=== PATIENT | male | born 1970 | race Caucasian/White ===

== ENCOUNTER 2019-05-22 13:25 | Emergency (ER) | payer MEDICAID ==
[~2019-05-22] VITALS: Ht 182.9 cm; Wt 68.2 kg
[2019-05-22 13:47] VITALS: Ht 182.9 cm; Wt 68.2 kg
[2019-05-22] MEDS ORDERED: LEVOTHYROXINE50 MCG PO (13:48)
[2019-05-22] MEDS ORDERED: LIPITOR80 MG PO (13:48)
[2019-05-22] MEDS ORDERED: PROTONIX40 MG PO (13:48)
[2019-05-22] MEDS ORDERED: PLAVIX75 MG PO (13:48)
[2019-05-22] MEDS ORDERED: ZETIA10 MG PO (13:49)
[2019-05-22] MEDS ORDERED: VIAGRA50 MG PO (13:49)
[2019-05-22] MEDS ORDERED: COREG6.25 MG PO (13:49)
[2019-05-22 14:39] LABS: EOSINOPHILS 2.6 % (0-7); HEMATOCRIT 45.9 % (42.0-54.0); HEMOGLOBIN 15.7 g/dL (13.5-17.5); IMMATURE GRANULOCYTES 0.2 % (0-5); LYMPHOCYTES 22.1 % (15-50); MCHC 34.2 g/dL (31.0-37.0); MCV 93.7 fL (80.0-100.0); MEAN PLATELET VOLUME 10.2 fL (7.4-10.4); MONOCYTES 6.3 % (2-11); NEUTROPHILS 67.8 % (40-80); PLATELET COUNT 179 10x3/uL (130-400); RDW 12.3 % (11.5-14.5); WBC 5.8 10x3/uL (4.8-10.8)
[2019-05-22 14:40] LABS: CALC OSMOLALITY 284 mosm/kg (275-300); CALCIUM 9.4 mg/dL (8.5-10.1); CARBON DIOXIDE 30.4 mmol/L (21.0-32.0); CHLORIDE - SERUM 104 mmol/L (98-107); CREATININE - SERUM 0.9 mg/dL (0.6-1.3); GLUCOSE 98 mg/dL (74-106); POTASSIUM - SERUM 3.9 mmol/L (3.5-5.1); SODIUM 143 mmol/L (136-145); UREA NITROGEN 12 mg/dL (7-18); eGFR NON AFRICAN AMERICAN > 90 mL/min (90-120)
[2019-05-22 14:46] LABS: ALBUMIN 4.4 g/dL (3.4-5.0); ALKALINE PHOSPHATASE 75 U/L (46-116); ALT (SGPT) 31 U/L (10-68); BILIRUBIN - TOTAL 0.49 mg/dL (0.2-1.3); PROTEIN - SERUM 8.1 g/dL (6.4-8.2)
[2019-05-22 14:58] LABS: INR 0.95 (0.85-1.17); PROTIME 12.2 SECONDS (11.6-15.0)
[2019-05-22 18:00] LABS: AMYLASE - SERUM 75 U/L (25-115); LIPASE 144 U/L (73-393)
[2019-05-22] MEDS ORDERED: LEVSIN/ANASP0.125 MG PO (19:18)
[2019-05-22] MEDS ORDERED: IBUPROFEN800 MG PO (19:18)
[2019-05-22] MEDS ORDERED: CYCLOBENZAPRINE10 MG PO (19:18)
[2019-05-22] MEDS ORDERED: ACETAMINOPHEN500 M1 PO (19:18)
[2019-05-22] MEDS ORDERED: RANITIDINE HCL150 M1 PO (19:19)
[2019-05-22 21:25] VITALS: BP 118/82
== END 2019-05-22 21:08 | disposition home or self-care (01) ==
LOC: D.ER 13:25
PROVIDERS: Family Medicine
DX: R10.9 Unspecified abdominal pain (principal); I25.2 Old myocardial infarction

== ENCOUNTER 2020-01-27 16:44 | Inpatient (IN) | payer MEDICAID ==
[~2020-01-27] VITALS: Ht 182.9 cm; Wt 66.5 kg
--- NOTE | ~2020-01-27 | HEMODYNAMI ---
PATIENT:ZULEYMA DAUGHERTY MEDICAL RECORD: [id number] : 66 LOCATION:[facility] D.2140 ADMISSION DATE: 01/27/20 Generatedon:01/28/202014:26 Patient name: ZULEYMA DAUGHERTY Patient #: [id number] SSN: D OB: 1970 Date of study: 01/28/2020 Page: Of Hemodynamic Procedure Report Patient Data Patient Demographics Procedure consent was obtained First Name: ZULEYMA Gender: Male Last Name: WILLOW : 1970 Middle Initial: L Age: 50 year(s) Patient #: [id number] Race: Additional ID: [id number] Contact details [address]: [address] [place] [address] State: [place] City: [place] Zip code: [address] Past Medical History Allergies Allergen Reaction Date Comments Reported Other allergy 01/28/2020 NKDA Admission Admission Data Admission Date: 01/27/2020 Admission Time: 19:47 Arrival Date: 01/28/2020 Arrival Time: 0:00 Admit Source: Other Room #: D.2140 Height (in.): 72 BSA: 1.86 (m2) Height (cm.): 182.88 BMI: 19.8 (kg/m2) Weight (lbs.): 146 Weight (kg.): 66.22 Lab Results Lab Result Date: 01/28/2020 Lab Result Time: 0:00 Biochemistry Name Units Result Min Max BUN mg/dl 14.1 --(--*-)-- 7 18 CK-MB ng/ml 0.5 --(*---)-- 0 3.6 Creatinine mg/dl 1.1 --(--*-)-- 0.6 1.3 eGFR ml/min 75 *-(----)-- 90 120 NONAFRICAN Troponin l ng/ml 0.017 --(-*--)-- 0 0.06 CBC Name Units Result Min Max Hematocrit % 46 --(-*--)-- 42 54 Hemoglobin g/dl 15.2 --(-*--)-- 13.5 17.5 Procedure Procedure Types Cath Procedure Diagnostic Procedure [facility] w/Coronaries Sedation Charges Moderate Sedation up to 15 minutes Procedure Description Procedure Date Procedure Date: 01/28/2020 Procedure Start Time: 14:08 Procedure End Time: 14:23 Procedure Staff Name Function Pedro Gonzalez MD Performing Physician Mirian Baez RT Monitor Carri Abel RT Scrub James Kat RN Nurse Indication Chest pain Procedure Data Cath Procedure Fluoroscopy Diagnostic fluoroscopy Total fluoroscopy Time: 1.3 time: 1.3 min min Diagnostic fluoroscopy Total fluoroscopy dose: 258 dose: 258 mGy mGy Contrast Material Contrast Material Type Amount (ml) Isovue 300 55 Entry Location Entry Primary Successful Side Size Upsize Upsize Entry Closure Succes sful Closure Location (Fr) 1 (Fr) 2 (Fr) Remarks Device Remarks Femoral Right 5 Fr Exoseal artery Estimated blood loss: 5 ml Diagnostic catheters Device Type Used For End Catheter Placement MULTIPACK JL 4.0 5Fr Left Coronary catheter Angiography MULTIPACK 3DRC 5Fr Right Coronary catheter Angiography MULTIPACK Pigtail 5 Fr LV Angiography catheter Procedure Complications No complications Procedure Medications Medication Administration Route Dosage 0.9% NaCl I.V. 100 ml/hr Oxygen etCO2 Nasal cannula 2 l/min Heparin Flush Bag added to field 2 bags (1000units/500ml NS) Lidocaine 2% added to field 20 Benadryl I.V. 50 mg Versed I.V. 2 mg Fentanyl I.V. 100 mcg Versed I.V. 1 mg Hemodynamics Rest BSA: 1.86 (m2) HGB: 15.2 (g/dl) O2 Consumption: Estimated: 217.77 (ml/min) O2 Co nsumption indexed: Estimated:117.08 (ml/min/m) Heart Rate: 64 (bpm) Pressure Samples Time Site Value (mmHg) Purpose Heart Use Rate(bpm) 14:17 LV 155/-6,8 Snapshot 84 Gradients Valve Time Site Site Mean SEP/DFP Peak To Heart Use 1 2 (mmHg) (sec/min) Peak Rate (mmHg) (bpm) Aortic 14:17 LV AO 36 Snapshots Pre Cath Intra NCS Post Cath Vital Signs Time Heart Resp SPO2 etCO2 NIBP (mmHg) Rhythm Pain Sedation Rate (ipm) (%) (mmHg) Status Level (bpm) 13:56:23 63 14 100 0 150/88(133) NSR 0 (11) 10(A) , No pain 14:00:34 68 13 98 0 147/95(135) NSR 0 (11) 10(A) , No pain 14:04:46 66 13 100 39.7 152/91(130) NSR 0 (11) 10(A) , No pain 14:09:00 71 15 100 36.7 144/94(114) NSR 0 (11) 10(A) , No pain 14:13:10 93 21 99 19.5 150/102(132) NSR 0 (11) 10(A) , No pain 14:17:22 78 16 97 0 153/103(125) NSR 0 (11) 9(A) , No pain 14:21:34 75 13 97 0 145/95(136) NSR 0 (11) 9(A) , No pain Medications Time Medication Route Dose Verified Delivered Reason Notes Eff ectiveness by by 14:03:56 0.9% NaCl I.V. 100 James James Per ml/hr [place] Kat physician RN RN 14:04:06 Oxygen etCO2 2 Jamse James for low 02 Nasal l/min Lorigan Lorigan sats cannula RN RN 14:04:18 Heparin Flush added 2 James James used for Bag to bags Lorigan Lorigan procedure (1000units/500ml field RN RN NS) 14:04:28 Lidocaine 2% added 20ml James James for local to vial Lorigan Lorigan anesthetic field RN RN 14:04:42 Benadryl I.V. 50 mg James James Per [place] physician RN RN 14:09:39 Versed I.V. 2 mg James James for Lorigan Lorigan sedation RN RN 14:09:48 Fentanyl I.V. 100 James James for mcg Lorigan Lorigan sedation RN RN 14:11:17 Versed I.V. 1 mg James James for Lorigan Lorigan sedation RN windows deployment technician Log Time Note 13:27:09 Diagnostic Cath Status : Urgent 13:28:47 Lab Result : Troponin l 0.017 ng/ml 13:28:47 Lab Result : eGFR NONAFRICAN 75 ml/min 13:28:47 Lab Result : CK-MB 0.5 ng/ml 13:28:47 Lab Result : BUN 14.1 mg/dl 13::47 Lab Result : Creatinine 1.1 mg/dl ::47 Lab Result : Hemoglobin 15.2 g/dl ::47 Lab Result : Hematocrit 46 % 13:29:16 Arrival Date: 01/28/2020 12:00:00 AM 13:29:16 Admit Source: Other 13:41:26 Patient Height : 72 inches 13:41:34 Patient Weight : 146 lbs 13:42:01 Informed consent obtained and on chart 13:42:20 James Kat RN sent for patient. Start room use. 13:42:24 Procedure Status Urgent Heart Cath (IP). 13:42:28 Time tracking: Regular hours (M-F 7:00 - 5:00) 13:42:37 Plan of Care:Hemodynamics will remain stable., Cardiac rhythm will remain stable., Comfort level will be maintained., Respiratory function will remain adequate., Patient/ family verbilizes understanding of procedure., Procedure tolerated without complication., Recovers from procedure without complications.. 13:42:59 Patient allergic to Other allergyNKDA 13:47:05 Indication : Chest pain 13:47:20 Lab results completed and on chart. 13:47:26 Risk of Mortality: 0.1 13:47:30 Risk of blood transfusion: 1.8 13:47:36 Risk of LEONORA: 1.7 13:47:44 Stress Test: no; N/A ? 13:48:02 H&P Date Dictated: 01/28/2020 Within 30 days and on chart., ER History o n chart.. 13:48:59 Patient received from Med II to CCL 1 Alert and oriented. Tansferred to table in Supine position. 13:49:00 Warm blankets applied, and brooks hugger turned on for patient comfort. 13:49:01 Correct patient and procedure confirmed by team. 13:49:02 ECG and BP/O2 sat monitors applied to patient. 13:55:14 Vital chart was started 13:55:17 Baseline sample Acquired. 13:55:22 Rhythm: sinus rhythm 13:55:25 Full Disclosure recording started 13:55:27 Pre-procedure instructions explained to patient. 13:55:27 Pre-op teaching completed and patient verbalized understanding. 13:55:30 Family unavailable. 13:55:33 Patient NPO since Midnight. 13:55:36 Is the patient allergic to Iodine/contrast media? No. 13:55:41 Was the patient premedicated? Yes 13:55:44 Is patient on blood thinner?Yes 13:55:48 ACC The patient was administered the following blood thiners within the last 24 hours: ACCPlavix 13:55:51 Patient diabetic? No. 13:55:54 - 13:55:55 ----Pre-sedation anethsthesia assessment.---- 13:55:59 Previous problem with sedation/anesthesia? No ? 13:56:02 Snore? Yes 13:56:07 Sleep apnea? Yes 13:56:09 Deviated septum? Unknown 13:56:14 Opens mouth fully? Yes 13:56:16 Sticks out tongue? Yes 13:56:33 Airway obstruction? Yes SLEEP APNEA/SLEEPS WITH CPAP 13:56:41 Dentures? Yes IN TIGHT 13:56:47 Pre procedure: right dorsailis pedis pulse 1+ Palpable, but thready & weak; easily obliterated 13:57:06 IV patent on arrival in right wrist with 0.9% NaCl at O. 13:57:16 Right groin area was prepped with chlora-prep and draped in sterile fashion 13:57:18 Alarms reviewed by R. N. 13:57:19 Sharps counted by scrub and verified by R.N. 13:57:27 Use device set Femoral Dx 13:57:29 ACIST Syringe (76011) opened to sterile field. 13:57:31 Bag Decanter (2002) opened to sterile field. 13:57:32 Medline Cath Pack ([id number]) opened to sterile field. 13:57:35 ACIST Hand Control (41999) opened to sterile field. 13:57:35 ACIST Manifold (27100) opened to sterile field. 13:57:37 DIAGNOSTIC Multipack 5Fr catheter set ([id number]) opened to sterile field. 13:57:38 Tegaderm 4 x 4 (1626W) opened to sterile field. 13:57:40 SHEATH 5FR Stockwell (THF643) opened to sterile field. 13:57:41 EMERALD Guide Wire (334-856) opened to sterile field. 14:03:56 0.9% NaCl 100 ml/hr I.V. was administered by James Kat RN; Per physician; Verbal order read back and verified. 14:04:06 Oxygen 2 l/min etCO2 Nasal cannula was administered by James Kat RN; for low 02 sats; Verbal order read back and verified. 14:04:18 Heparin Flush Bag (1000units/500ml NS) 2 bags added to field was administered by James Kat RN; used for procedure; Verbal order read back and verified. 14:04:23 Zero performed for pressure channel P1 14:04:28 Lidocaine 2% 20ml vial added to field was administered by James Kat RN; for local anesthetic; Verbal order read back and verified. 14:04:42 Benadryl 50 mg I.V. was administered by James Kat RN; Per physician; Verbal order read back and verified. 14:04:45 Zero performed for pressure channel P1 14:05:05 Physician arrived 14:05:05 --------ALL STOP TIME OUT------ 14:05:06 Final Timeout: patient, procedure, and site verified with staff and physician. All members of the team are in agreement. 14:05:10 Right groin site verified by team. 14:05:17 Fire Safety Assessment: A--An alcohol-based skin anteseptic being used preoperatively., C--Open oxygen or nitrous oxide is being used., D--An ESU, laser, or fiber-optic light is being used. 14:05:22 Physical assessment completed. ASA score P 2 - A patient with mild systemic disease as per Pedro Gonzalez MD. 14:05:29 2) 60-89 Mildly reduced kidney function, and other findings (as for stage 1) point to kidney disease. 14:05:34 Maximum allowable contrast dose (3.7 X eGFR X 0.75)208 ml. 14:05:41 Sedation plan: IV Moderate Sedation Medication:Versed, Fentanyl 14:08:06 Procedure started. 14:08:13 Local anesthetic to right femoral artery with Lidocaine 2% by Pedro mitchell MD.INITIAL ACCESS ONLY 14:09:39 Versed 2 mg I.V. was administered by James Kat RN; for sedation; Verbal order read back and verified. 14:09:48 Fentanyl 100 mcg I.V. was administered by James Kat RN; for sedation; Verbal order read back and verified. 14:10:00 A 5 Fr sheath was inserted into the Right Femoral artery 14:10:09 A MULTIPACK JL 4.0 5Fr catheter was advanced over the wire and used for Left Coronary Angiography. 14:11:17 Versed 1 mg I.V. was administered by James Kat RN; for sedation; Verbal order read back and verified. 14:11:47 LCA angiography performed. 14:11:51 Injector settings: Ml/sec: 3, Volume: 6, 14:13:56 Catheter removed. 14:14:11 A MULTIPACK 3DRC 5Fr catheter was advanced over the wire and used for Right Coronary Angiography. 14:14:25 Injector settings: Ml/sec: 3, Volume: 6, 14:15:08 RCA angiography performed. 14:15:28 Catheter removed. 14:15:37 A MULTIPACK Pigtail 5 Fr catheter was advanced over the wire and used for LV Angiography. 14:15:42 Injector settings: Ml/sec: 5, Volume: 15, 14:17:13 EF : 55 % 14:17:22 LV gram done using AYALA 14:17:23 LV hemodynamics recorded. 14:18:20 Catheter removed. 14:20:35 EXOSEAL 5Fr (EX500) opened to sterile field. 14:20:59 Sheath removed intact; hemostasis achieved with Exoseal to the Right Femoral artery. 14:21:09 Contrast amount:Isovue 300 55ml. 14:21:18 Fluoroscopy time 01.30 minutes. 14:21:24 Fluoroscopy dose: 258 mGy 14:21:24 Flurop Dose total: 258 14:21:31 Dose Area Product 16964 mGy/cm. 14:21:33 Procedure ended.(Physican Out) 14:21:41 Maximum allowable dose exceeded? No. 14:21:43 Sharps counted by scrub and verified by R.N. 14:21:46 Insertion/operative site no bleeding no hematoma. 14:21:53 Post-op/insertion site Right Femoral artery dressed using a 4 x 4 and Tegaderm. 14:22:00 Post right femoral artery:stable 14:22:05 Post-procedure physical assessment completed. ASA score P 2 - A patient with mild systemic disease as per Pedro Gonzalez MD. 14:22:10 Post procedure rhythm: unchanged. 14:22:14 Estimated blood loss: 5 ml 14:22:16 Post procedure instruction explained to patient.Patient verbalizes understanding. 14:22:17 Patient needs reinforcement of post procedure teaching. 14:22:29 Procedure type changed to Cath procedure, Diagnostic procedure, LHC, C w/Coronaries, Sedation Charges, Moderate Sedation up to 15 minutes 14:22:33 Procedure and supply charges have been captured, reviewed, submitted an d are correct. 14:23:30 Procedure Complication : No complications 14:23:35 Vital chart was stopped 14:23:39 [facility] Findings: MVD- MD will discuss options w/ pt 14:23:42 Operative report dictated upon procedure completion. 14:23:44 See physician's report for complete and final results. 14:23:48 Report given to [facility]. 14:23:52 Patient transfered to [facility] with Bed. 14:23:57 Procedure ended. 14:23:57 Full Disclosure recording stopped 14:24:35 End room use (Document Last) Device Usage Item Name Manufacture Quantity Catalog Hospital Part Current Minimal L ot# / Number Charge Number Stock Stock Serial# Code ACIST Acist 1 56608 106122 227091 [id number] 20 Syringe Medical (36605) Systems Inc Bag Microtek 1 806592 00355 967925 5 Decanter Medical Inc. () Medline Medline 1 [id number] 744291 93303 719826 5 Cath Pack ([id number]) ACIST Hand Acist 1 30185 386492 362947 735142 5 Control Medical (08344) Systems Inc ACIST Acist 1 28575 949503 474788 252862 5 Manifold Medical (21006) Systems Inc DIAGNOSTIC Cardinal 1 [id number] 603573 96219 768895 30 [facility] 5Fr catheter set (TR7286) Tegaderm 4 3M 1 1626W 044981 506432 559410 5 x 4 (1626W) SHEATH 5FR Terumo 1 CAC132 810330 566986 142353 5 Stockwell (IGO887) EMERALD Cardinal 1 666-462 780652 271853 204658 5 Guide Wire [facility] (417-145) MULTIPACK Cardinal 1 128582 5 JL 4.0 5Fr Health catheter MULTIPACK Cardinal 1 290517 5 3DRC 5Fr Health catheter MULTIPACK Cardinal 1 218258 5 Pigtail 5 Health Fr catheter EXOSEAL 5Fr Cardinal 1 EX500 861243 641258 605512 10 (EX500) Health Signature Audit [place] Stage Time Signature Unsigned Intra-Procedure 01/28/2020 Mirian 2:25:01 PM Sasha RT(R) (CV) Intra-Procedure 01/28/2020 James 2:25:31 PM North PERALES Intra-Procedure 01/28/2020 Pedro Gonzalez MD 2:26:11 PM [facility] [address] [place] [address]
[~2020-01-27 16:44] MED LIST: ACETAMINOPHEN500 M1 PO; COREG6.25 MG PO; CYCLOBENZAPRINE10 MG PO; IBUPROFEN800 MG PO; LEVOTHYROXINE50 MCG PO; LEVSIN/ANASP0.125 MG PO; LIPITOR80 MG PO; PLAVIX75 MG PO; PROTONIX40 MG PO; RANITIDINE HCL150 M1 PO; VIAGRA50 MG PO; ZETIA10 MG PO
[2020-01-27 17:12] LABS: BASOPHILS 0.5 % (0-2); EOSINOPHILS 0.8 % (0-7); HEMATOCRIT 41.7 % (42.0-54.0); HEMOGLOBIN 13.9 g/dL (13.5-17.5); IMMATURE GRANULOCYTES 0.2 % (0-5); LYMPHOCYTES 20.8 % (15-50); MCH 30.7 pg (26.0-34.0); MCHC 33.3 g/dL (31.0-37.0); MCV 92.1 fL (80.0-100.0); MEAN PLATELET VOLUME 9.7 fL (7.4-10.4); MONOCYTES 7.6 % (2-11); NEUTROPHILS 70.1 % (40-80); PLATELET COUNT 189 10x3/uL (130-400); RBC 4.53 10x6/uL (4.20-6.10); RDW 13.4 % (11.5-14.5); WBC 6.1 10x3/uL (4.8-10.8)
[2020-01-27 17:22] VITALS: BP 144/88
[2020-01-27 17:22] LABS: D-DIMER-QUANTITATIVE 0.28 ug/mLFEU (0.20-0.54)
[2020-01-27 17:27] LABS: CALC OSMOLALITY 281 mosm/kg (275-300); CALCIUM 8.8 mg/dL (8.5-10.1); CARBON DIOXIDE 27.7 mmol/L (21.0-32.0); CHLORIDE - SERUM 105 mmol/L (98-107); CREATININE - SERUM 1.1 mg/dL (0.6-1.3); GLUCOSE 131 mg/dL (74-106); POTASSIUM - SERUM 3.2 mmol/L (3.5-5.1); SODIUM 140 mmol/L (136-145); UREA NITROGEN 14 mg/dL (7-18); eGFR NON AFRICAN AMERICAN 75 mL/min (90-120)
[2020-01-27 17:43] LABS: ALBUMIN 3.7 g/dL (3.4-5.0); ALKALINE PHOSPHATASE 74 U/L (30-120); ALT (SGPT) 20 U/L (10-68); BILIRUBIN - TOTAL 0.47 mg/dL (0.2-1.3); CKMB 0.9 U/L (0.0-3.6); CREATINE KINASE 63 UL (21-232); PRO BNP 200 pg/mL (0-125); PROTEIN - SERUM 6.8 g/dL (6.4-8.2)
[2020-01-27 17:46] LABS: TROPONIN-I < 0.017 ng/mL (0.000-0.060)
[2020-01-27 18:07] VITALS: BP 144/88
[2020-01-27 18:47] LABS: INR 0.9 (0.85-1.17); PROTIME 12.2 SECONDS (11.6-15.0)
[2020-01-27 22:10] VITALS: BP 120/77; BMI 19.7
--- NOTE | 2020-01-27 22:26 | NUR ---
RECIEVED REPORT FROM NIDIA PERALES IN ER. BROUGHT TO FLOOR IN W/C. TRANSFERED SELF TO BED. ALERT AND ORIENTED X4. UP AD JUNIE. C/O CHEST PAIN AT 10. MORPHINE GIVEN PER ORDERS. UP AND EATING MCDONALDS MEAL AT THAT TIME. DESCRIBED PAIN DULL AND CONSTANT. DR. COSTA HERE AND SEEN PT. ASSESSMENT COMPLETED.
--- NOTE | 2020-01-27 22:30 | NUR ---
PT STATES PAIN LEVEL A [address] AT THIS TIME[address] PAGE DR. COSTA AND NOTIFY.
--- NOTE | 2020-01-27 22:46 | NUR ---
DR. COSTA NOTIFIED OF PAIN AND SAID HE NEEDS TO GIVE IT SOME TIME. INSTRUCTED HIM TO TRY AND RELAX AND LET THE MEDICATION WORK. HE WAS ON THE TELEPHONE TALKING WHEN I ENTERED THE ROOM. U/A COLLECTED BY THIS NURSE AND WALKED OVER TO THE LAB. LAD NOTIFIED OF STAT STATUS.
[2020-01-27 23:10] LABS: BILIRUBIN NEGATIVE (NEGATIVE); GLUCOSE NEGATIVE (NEGATIVE); KETONE NEGATIVE (NEGATIVE); NITRITE NEGATIVE (NEGATIVE); UROBILINOGEN NORMAL (NORMAL)
[2020-01-27 23:16] LABS: UDS - AMPHET POSITIVE QUAL (NEGATIVE); UDS - BARB NEGATIVE QUAL (NEGATIVE); UDS - BENZO NEGATIVE QUAL (NEGATIVE); UDS - COCAINE NEGATIVE QUAL (NEGATIVE); UDS - OPIATE POSITIVE QUAL (NEGATIVE); UDS - PCP NEGATIVE QUAL (NEGATIVE); UDS - THC POSITIVE QUAL (NEGATIVE)
[2020-01-28 01:49] LABS: CKMB 0.5 U/L (0.0-3.6); CREATINE KINASE 47 UL (21-232); TROPONIN-I < 0.017 ng/mL (0.000-0.060)
[2020-01-28 04:30] VITALS: BP 128/90
[2020-01-28 07:23] LABS: BASOPHILS 0.4 % (0-2); EOSINOPHILS 1.9 % (0-7); HEMOGLOBIN 15.2 g/dL (13.5-17.5); IMMATURE GRANULOCYTES 0.2 % (0-5); LYMPHOCYTES 25.8 % (15-50); MCH 30.9 pg (26.0-34.0); MCV 93.5 fL (80.0-100.0); MEAN PLATELET VOLUME 9.7 fL (7.4-10.4); MONOCYTES 7.9 % (2-11); NEUTROPHILS 63.8 % (40-80); RBC 4.92 10x6/uL (4.20-6.10); RDW 13.5 % (11.5-14.5); WBC 5.3 10x3/uL (4.8-10.8)
[2020-01-28 07:33] LABS: PLATELET COUNT 235 10x3/uL (130-400)
[2020-01-28 07:34] LABS: ALT (SGPT) 18 U/L (10-68); CHOL - HDL RATIO 2.3 ratio (2.3-4.9); CHOLESTEROL, TOTAL 109 mg/dL (0-200); CKMB 0.6 U/L (0.0-3.6); CREATINE KINASE 46 UL (21-232); HDL CHOLESTEROL 47 mg/dL (32-96); LDL CHOLESTEROL 39 mg/dL (0-100); LDL-HDL RATIO 0.8 ratio (1.5-3.5); MAGNESIUM - SERUM 2.1 mg/dL (1.8-2.4); TRIGLYCERIDE 118 mg/dL (30-200); TROPONIN-I < 0.017 ng/mL (0.000-0.060)
[2020-01-28 08:00] VITALS: BP 134/82
--- NOTE | 2020-01-28 08:21 | NUR ---
PT WITH COMPLAINT OF RIGHT ARM AND SHOULDER FEELING LIKE A PINCHED NERVE. JUST OUT OF SHOWER. STATES NOT SAME PRIOR PAIN IN CHEST. MORPHINE GIVEN AT 0618.
[2020-01-28 11:00] VITALS: BP 129/89
--- NOTE | 2020-01-28 13:48 | NUR ---
[facility] [employer] HERE FOR PT. NOT PRE-OP YET. STATES THEY WILL IN LAB. FLUIDS SENT WITH TUBING.
[2020-01-28 14:29] VITALS: BMI 19.6
--- NOTE | 2020-01-28 14:54 | NUR ---
PT BACK TO ROOM FROM REMARKETING REP. DRESSING TO RIGHT GROIN CLEAN AND DRY. PT FLAT IN BED, INSTRUCTED NEEDS TO BE FOR TWO HOURS. NS IV INFUSING. PULSES PALPABLE.
[2020-01-28 15:00] VITALS: BP 139/84
[2020-01-28 20:00] VITALS: BP 133/83
[2020-01-29] VITALS: BP 117/86
--- NOTE | 2020-01-29 02:08 | NUR ---
I have reviewed this patient and I concur with the Shift Assessment completed by the Licensed Practical Nurse today this shift.
[2020-01-29 04:00] VITALS: BP 129/86
--- NOTE | 2020-01-29 05:12 | NUR ---
PT VOICES NO C/O OR CONCERNS. NO NEEDS EXPRESSED AT THIS TIME
[2020-01-29 05:53] LABS: BASOPHILS 0.6 % (0-2); EOSINOPHILS 2.3 % (0-7); HEMATOCRIT 44.6 % (42.0-54.0); HEMOGLOBIN 14.6 g/dL (13.5-17.5); IMMATURE GRANULOCYTES 0.2 % (0-5); LYMPHOCYTES 19.6 % (15-50); MCH 30.5 pg (26.0-34.0); MCHC 32.7 g/dL (31.0-37.0); MCV 93.3 fL (80.0-100.0); MONOCYTES 8.4 % (2-11); NEUTROPHILS 68.9 % (40-80); PLATELET COUNT 221 10x3/uL (130-400); RBC 4.78 10x6/uL (4.20-6.10); RDW 13.3 % (11.5-14.5); WBC 6.2 10x3/uL (4.8-10.8)
[2020-01-29 06:20] LABS: CALC OSMOLALITY 278 mosm/kg (275-300); CALCIUM 8.2 mg/dL (8.5-10.1); CARBON DIOXIDE 29.5 mmol/L (21.0-32.0); CHLORIDE - SERUM 102 mmol/L (98-107); GLUCOSE 92 mg/dL (74-106); SODIUM 139 mmol/L (136-145); UREA NITROGEN 14 mg/dL (7-18); eGFR NON AFRICAN AMERICAN 83 mL/min (90-120)
[2020-01-29 09:36] VITALS: BP 125/84
[2020-01-29 12:00] VITALS: BP 128/94
[2020-01-29 16:00] VITALS: BP 128/81
[2020-01-29 16:34] LABS: PLT FUNCT.(P2Y12) PLAVIX 142 PRU (194-418)
[2020-01-29 20:00] VITALS: BP 137/76
[2020-01-30] VITALS: BP 135/89
[2020-01-30 04:00] VITALS: BP 125/90
[2020-01-30 06:57] LABS: CALC OSMOLALITY 277 mosm/kg (275-300); CARBON DIOXIDE 28.2 mmol/L (21.0-32.0); CHLORIDE - SERUM 101 mmol/L (98-107); CREATININE - SERUM 0.8 mg/dL (0.6-1.3); GLUCOSE 114 mg/dL (74-106); MAGNESIUM - SERUM 1.9 mg/dL (1.8-2.4); SODIUM 138 mmol/L (136-145); UREA NITROGEN 14 mg/dL (7-18); eGFR NON AFRICAN AMERICAN > 90 mL/min (90-120)
[2020-01-30 07:15] LABS: BASOPHILS 0.6 % (0-2); EOSINOPHILS 1.9 % (0-7); HEMATOCRIT 48.6 % (42.0-54.0); HEMOGLOBIN 16.5 g/dL (13.5-17.5); IMMATURE GRANULOCYTES 0.2 % (0-5); LYMPHOCYTES 18.3 % (15-50); MCH 30.9 pg (26.0-34.0); MEAN PLATELET VOLUME 9.6 fL (7.4-10.4); PLATELET COUNT 208 10x3/uL (130-400); RBC 5.34 10x6/uL (4.20-6.10); RDW 13.3 % (11.5-14.5); WBC 6.5 10x3/uL (4.8-10.8)
--- NOTE | 2020-01-30 07:30 | NUR ---
PT SITTING UP IN BED, REQUEST SHOWER. IV COVERED AND SUPPLIES RECIEVED FOR SHOWER. SHOWER RECIEVED. IV DRESSING TO R. FA WAS PEELING OFF. DRESSING REMOVED AND REPLACED WITH CLEAN DRESSING. LINENS REMOVED AND REPLACED WITH CLEAN LINENS. CALL LIGHT WITHIN REACH. BED IN LOWEST POSITION. WILL CONTINUE TO MONITOR.
[2020-01-30 08:50] VITALS: BP 113/86
[2020-01-30 11:27] VITALS: BP 133/91
[2020-01-30 15:29] VITALS: Ht 182.9 cm; Wt 66.5 kg
--- NOTE | 2020-01-30 15:34 | NUR ---
DR. COSTA STATES TO ME HE IS OK WITH PT TO DISCHARGE AND THAT PT NEEDS TO FOLLOW UP WITH DR. FAN IN 1-2 WEEKS AND THEN FOLLOW UP WITH THEM AFTER HE SEES DR. FAN DEPENDING ON WHAT DR. FAN WANTS. PT'S PRIMARY NURSE IS IN ANOTHER ROOM. I WILL PASS THIS ON TO PRIMARY NURSE.
[2020-01-30 16:14] VITALS: BP 132/86
--- NOTE | 2020-01-30 18:09 | NUR ---
D/C INSTRUCTIONS REVIEWED WITH PT, VERBALIZED UNDERSTANDING. IV D/C WITH CATHETER TIP INTACT. PT LEFT VIA WHEELCHAIR WITH ALL BELONGINGS.
== END 2020-01-30 18:20 | disposition home or self-care (01) | DRG 287 ==
LOC: D.ER 16:44 → D.M2 19:47 → OBSVTIME 19:48 → D.M2 01-28 17:46
PROVIDERS: Family Medicine; Internal Medicine Cardiovascular Disease; Thoracic Surgery (Cardiothoracic Vascular Surgery); ADMIT Family Medicine; ATTEND Family Medicine
PROC: B2151ZZ Fluoroscopy of Left Heart using Low Osmolar Contrast (ICD-10-PCS; 2020-01-28)
PROC: 4A023N7 Measurement of Cardiac Sampling and Pressure, Left Heart, Percutaneous Approach (ICD-10-PCS; 2020-01-28)
PROC: B2111ZZ Fluoroscopy of Multiple Coronary Arteries using Low Osmolar Contrast (ICD-10-PCS; principal; 2020-01-28 13:42)
DX: I25.110 Atherosclerotic heart disease of native coronary artery with unstable angina pectoris (principal); E87.6 Hypokalemia